=== PATIENT | male | born 1965 | race Caucasian/White ===

== ENCOUNTER 2023-02-18 09:29 | Emergency (ER) | payer OTHER ==
[~2023-02-18] VITALS: Ht 165.1 cm; Wt 84.1 kg
[2023-02-18 10:00] VITALS: PULSE 68; RESP 35; O2SAT 100
[2023-02-18 10:00] LABS: BASOPHILS % (AUTO) 0.6 % (0.0-2.0); EOSINOPHILS % (AUTO) 0.1 % (1.0-6.0); HEMATOCRIT 43.9 % (41-53); LYMPHOCYTES # (AUTO) 1.8 K/uL (1.0-4.8); LYMPHOCYTES % (AUTO) 12.4 % (22.0-44.0); MEAN CORPUSCULAR HEMOGLOBIN 31.5 pg (26.0-34.0); MEAN CORPUSCULAR HGB CONC 34.2 G/dL (31.0-37.0); MEAN CORPUSCULAR VOLUME 92 fL (80-100); MONOCYTES # (AUTO) 0.6 K/uL (0.1-1.0); MONOCYTES % (AUTO) 4.2 % (2.0-9.0); NEUTROPHILS # (AUTO) 11.9 K/uL (1.8-7.7); NEUTROPHILS % (AUTO) 82.7 % (40.0-70.0); PLATELET COUNT (AUTO) 196 K/uL (150-450); RED BLOOD CELL COUNT(AUTO) 4.76 MIL/uL (4.50-5.90); WHITE BLOOD COUNT (AUTO) 14.4 K/uL (4.5-11.0)
[2023-02-18] MEDS ORDERED: SUCCINYLCHOLINE CHLORIDE 20 MG/ML 10 ML VIAL IVP ONE (10:00)
[2023-02-18] MEDS ORDERED: NALOXONE HCL 1 MG/ML 2 ML SYRINGE IVP ONE (10:00)
[2023-02-18] MEDS ORDERED: ETOMIDATE 2 MG/ML 10 ML VIAL IVP ONE (10:00)
[2023-02-18] MEDS ORDERED: SODIUM CHLORIDE 0.9% 1,000 ML IV ONE ×2 (10:00→10:15)
[2023-02-18] MEDS ORDERED: LORazepam 2 MG/ML VIAL ONE (10:04)
[2023-02-18 10:11] LABS: APPEARANCE,URINE CLEAR (CLEAR); BILIRUBIN,URINE NEGATIVE (NEGATIVE); COLOR,URINE COLORLESS (YELLOW); GLUCOSE, URINE (UA) 70-100 mg/dL (NEGATIVE); KETONES,URINE TRACE mg/dL (NEGATIVE); LEUKOCYTE ESTERASE ,URINE NEGATIVE (NEGATIVE); NITRATE,URINE NEGATIVE (NEGATIVE); OCCULT BLOOD,URINE NEGATIVE (NEGATIVE); PROTEIN,URINE NEGATIVE (NEGATIVE); SPECIFIC GRAVITIY, URINE 1.009 (1.003-1.030); UROBILINOGEN,URINE <=1.0 mg/dL (<=1.0)
[2023-02-18 10:14] LABS: INR 1.3 (0.9-1.1)
[2023-02-18] MEDS ORDERED: PROPOFOL 1000 MG/ISO-OSM 100 ML IV PRN (10:15)
[2023-02-18] MEDS ORDERED: LORazepam 2 MG/ML VIAL IVP ONE (10:15)
[2023-02-18] MEDS ORDERED: LevETIRAcetam 1,000 MG in DEXTROSE 5%-WATER 100 ML IV ONE (10:15)
[2023-02-18 10:19] LABS: BACTERIA,URINE Rare /HPF (None Seen); RBC,URINE 0-2 /HPF (0-2); SQUAMOUS EPITHELIAL CELL,UR Few /LPF (None Seen); WBC,URINE 0-2 /HPF (0-5)
[2023-02-18 10:19] LABS: B-TYPE NATRIURETIC PEPTIDE 11 pg/mL (0-100)
[2023-02-18 10:20] LABS: LACTIC ACID 2.4 mmol/L (0.4-2.0); TROPONIN I-HIGH SENSITIVITY 4 ng/L (<76)
[2023-02-18 10:24] LABS: ANION GAP 14 mmol/L (8-16); CALCIUM, TOTAL 9.3 mg/dL (8.8-10.5); CARBON DIOXIDE 22 mmol/L (22-29); CHLORIDE 99 mmol/L (98-107); CREATININE 0.74 mg/dL (0.60-1.30); GLOMERULAR FILTR. RATE CALC > 60 mL/min (>60); GLUCOSE,RANDOM 219 mg/dL (70-110); POTASSIUM 3.8 mmol/L (3.5-5.1); SODIUM SERUM 135 mmol/L (136-145); UREA NITROGEN, BLOOD 14 mg/dL (7-18)
[2023-02-18 10:48] LABS: ALANINE AMINOTRANSFERASE 24 U/L (12-78); ALBUMIN 4.6 g/dL (3.4-5.0); ALKALINE PHOSPHATASE 89 U/L (46-116); ASPARTATE AMINOTRANSFERASE 23 U/L (15-37); BILIRUBIN,TOTAL 0.7 mg/dL (0.1-1.0); CREATINE KINASE, TOTAL ONLY 122 U/L (39-308); TOTAL PROTEIN, SERUM 8.3 g/dL (6.4-8.2)
[2023-02-18] MEDS ORDERED: VECURONIUM BROMIDE 10 MG/VIAL ONE (10:50)
[2023-02-18 10:52] LABS: ALCOHOL, URINE DRUG SCREEN NEGATIVE (NEGATIVE); AMPHET/METH SCREEN,URINE NEGATIVE (NEGATIVE); BARBITURATE SCREEN, URINE NEGATIVE (NEGATIVE); BENZODIAZEPINES SCREEN,URINE NEGATIVE (NEGATIVE); CANNABINOID SCREEN,URINE NEGATIVE (NEGATIVE); COCAINE SCREEN,URINE NEGATIVE (NEGATIVE); METHADONE SCREEN, URINE NEGATIVE (NEGATIVE); OPIATE SCREEN,URINE NEGATIVE (NEGATIVE); PHENCYCLIDINE SCREEN,URINE NEGATIVE (NEGATIVE)
[2023-02-18] MEDS ORDERED: VECURONIUM BROMIDE 10 MG/VIAL IVP ONE ×2 (11:00)
[2023-02-18] MEDS ORDERED: ADENOSINE 3 MG/ML 2 ML VIAL IVP ONE (11:15)
[2023-02-18] MEDS ORDERED: IOHEXOL 350 MG/ML 100 ML VIAL ONE (11:26)
[2023-02-18] MEDS ORDERED: SODIUM CHLORIDE 0.9% 100 ML ONE (11:26)
[2023-02-18] MEDS ORDERED: DILTIAZEM HCL 125 MG in DEXTROSE 5%-WATER 100 ML IV PRN (11:30)
[2023-02-18] MEDS ORDERED: AMIODARONE HCL 360 MG in DEXTROSE 5%-WATER 242.8 ML IV ONE (11:45)
[2023-02-18] MEDS ORDERED: AMIODARONE HCL 150 MG in DEXTROSE 5%-WATER 97 ML IV ONE (11:45)
[2023-02-18 12:25] VITALS: TEMP 99.4
[2023-02-18 13:55] VITALS: BP 97/64
[2023-02-18 14:15] VITALS: PULSE 85; RESP 25; O2SAT 98
[2023-02-18] MEDS ORDERED: AMIODARONE HCL 540 MG in DEXTROSE 5%-WATER 239.2 ML IV ONE (17:45)
[2023-02-19] MEDS ORDERED: AMIODARONE HCL 750 MG in DEXTROSE 5%-WATER 485 ML IV SCH (12:00)
== END 2023-02-18 15:15 | disposition short-term general hospital (02) ==
LOC: EMS 09:31
DX: R51.9 Headache, unspecified (principal); R11.10 Vomiting, unspecified; E78.00 Pure hypercholesterolemia, unspecified
CPT/HCPCS: 99291; 70450; 31500; 96365; 71045; 96375; 96367; 80053; 82550; 83605; 83880; 84484; 85025; 85610; 85730; 36415; 74177; 99292; 80307; 81001; 93005; J0712; J0282 ×2; J2060; J2704; J3490; Q9967; J7060 ×2; J7050; 94002; J0153